=== PATIENT | male | born 1990 | race Caucasian/White ===

== ENCOUNTER 2019-07-20 14:16 | Emergency (ER) | payer BC ==
[~2019-07-20] VITALS: Ht 167.6 cm; Wt 84.1 kg
[2019-07-20] MEDS ORDERED: CEPHALEXIN500 M1 PO (15:21)
[2019-07-20] MEDS ORDERED: NORCO 325 MG-51 TAB PO (15:21)
[2019-07-20] MEDS ORDERED: DOXYCYCLINE 10100 MG PO (15:21)
[2019-07-20 15:33] LABS: COLLECTION METHOD CLEAN CATCH
[2019-07-20 15:46] LABS: AMORPHOUS CRYSTAL Present /uL; MUCOUS Present /lpf; PH 5 (5-8); SQUAMOUS EPITHELIAL None Seen /hpf; URINE APPEARANCE Turbid; URINE BACTERIA None Seen /hpf; URINE BILIRUBIN Negative (NEGATIVE); URINE BLOOD Negative (NEGATIVE); URINE COLOR Yellow; URINE GLUCOSE Negative (NEGATIVE); URINE KETONE Negative (NEGATIVE); URINE LEUKOCYTE ESTERASE Negative (NEGATIVE); URINE NITRATE Negative (NEGATIVE); URINE PROTEIN(semi-quant) 1+ (NEGATIVE); URINE RBC None Seen /hpf
[2019-07-20 16:20] VITALS: BP 116/79; PULSE 87; TEMP 99.8
== END 2019-07-20 16:20 | disposition home or self-care (01) ==
LOC: COL.ER 14:16
PROVIDERS: Emergency Medicine
DX: R59.0 Localized enlarged lymph nodes (principal)
CPT/HCPCS: J1885

== ENCOUNTER → 2019-10-11 | Outpatient (CLI) | payer BC ==
[~2019-10-11] MED LIST: CEPHALEXIN500 M1 PO; DOXYCYCLINE 10100 MG PO; NORCO 325 MG-51 TAB PO
== END ==
LOC: COL.RAD 12:00
DX: R59.0 Localized enlarged lymph nodes (principal)

== ENCOUNTER 2019-11-16 09:42 | Day surgery (SDC) | payer BC ==
[~2019-11-16] VITALS: Ht 167.6 cm; Wt 78.8 kg
[2019-11-16 10:28] VITALS: BP 116/64; PULSE 83; TEMP 97.7
[2019-11-16] MEDS ORDERED: NORCO 325 MG-51 TAB PO (12:22)
[2019-11-16] MEDS ORDERED: CEPHALEXIN500 M1 PO (12:22)
[2019-11-16 12:24] VITALS: BP 96/43; PULSE 72; TEMP 97.1
--- NOTE | 2019-11-16 12:24 | NUR ---
Patient brought back from OR to [facility] via cart. Placed on monitors, vital signs stable. Pt is unresponsive at this time. Oxygen in place at 6L via mask. Oral airway remains in place. Report recieved from Ricardo PLASCENCIA and Megan RODRIGUEZ. Ricardo to remain at bedside until pt awakes. Will continue to monitor.
[2019-11-16 12:30] VITALS: BP 99/50; PULSE 86
--- NOTE | 2019-11-16 12:30 | NUR ---
Patient remains unresponsive at this time. [employer] at bedside. Vital signs stable. Pt remains on oxygen. Will continue to monitor.
--- NOTE | 2019-11-16 12:35 | NUR ---
Patient arroused by verbal and physical stimuli at this time. Able to remove oral airway. Vital signs stable on room. Remains drowsy. Will continue to monitor.
[2019-11-16 12:45] VITALS: BP 93/61; PULSE 85
--- NOTE | 2019-11-16 12:45 | NUR ---
Patient is awake and alert at this time. Vital signs stable. Pt states pain is 3/10 to left groin. Bandage dry and intact. Pt requesting water, denies anything to eat at this time. at bedside. Will continue to monitor.
[2019-11-16 13:00] VITALS: BP 98/64; PULSE 84
--- NOTE | 2019-11-16 13:00 | NUR ---
Pain mediction given per orders. Pt vital signs remain stable at this time. Will continue to monitor.
[2019-11-16 13:15] VITALS: BP 106/70; PULSE 68
--- NOTE | 2019-11-16 13:30 | NUR ---
Patient states pain is 4/10 to groin. Would like to go home at this time. IV removed without difficulty. Denies any nausea. Discharge instructions reviewed with patient and . All questions answered. New medications and follow up appointment reviewed. Pt to get dressed at this time.
--- NOTE | 2019-11-16 13:40 | NUR ---
Patient brought down to lobby via wheel chair. Transfered to truck without difficulty. To be driven home by .
== END 2019-11-16 13:40 | disposition home or self-care (01) ==
LOC: SDCO 09:42
DX: I88.8 Other nonspecific lymphadenitis (principal); K21.9 Gastro-esophageal reflux disease without esophagitis; F17.210 Nicotine dependence, cigarettes, uncomplicated; Z80.1 Family history of malignant neoplasm of trachea, bronchus and lung; Z82.5 Family history of asthma and other chronic lower respiratory diseases; Z82.49 Family history of ischemic heart disease and other diseases of the circulatory system
CPT/HCPCS: J0690; J2704; J7120